=== PATIENT | male | born 1995 | race Hispanic/Latino ===

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

== ENCOUNTER 2017-01-02 11:03 | Emergency (ER) | payer BC, OTHER ==
[2017-01-02 11:12] VITALS: BP 173/64; PULSE 74; TEMP 97; O2SAT 97
[2017-01-02 11:13] VITALS: BMI 33.2
--- NOTE | 2017-01-02 11:47 | ED PDOC ---
Lower Extremity Pain/Injury Time Seen by Provider: 01/02/17 11:38 Chief Complaint (Nursing): Lower Extremity Problem/Injury Chief Complaint (Provider): knee pain History Per: Patient History/Exam Limitations: no limitations Additional Complaint(s): Pt. with left knee pain since Wed. after twisting knee on a wet floor. Did not hurt ankle, hip, head, neck. Has not taken any pain meds. Pain on ambulation. No numbness, tingles, weakness, headaches, dizziness, weakness, calf pain. Past Medical History Reviewed: Nursing Documentation, Vital Signs Vital Signs: Last Vital Signs Temp 97 F L 01/02/17 11:11 Pulse 74 01/02/17 11:11 Resp BP 173/64 H 01/02/17 11:11 Pulse Ox 97 01/02/17 11:11 - Medical History PMH: No Chronic Diseases - Surgical History Surgical History: No Surg Hx - Family History Family History: States: Unknown Family Hx - Social History Current smoker - smoking cessation education provided: No Alcohol: None Drugs: Denies - Home Medications Home Medications: Ambulatory Orders Medication Instructions Recorded Ibuprofen [Motrin] 600 mg PO TID 7 Days tab 01/02/17 - Allergies Allergies/Adverse Reactions: Allergies Allergy/AdvReac Type Severity Reaction Status Date / Time No Known Allergies Allergy Verified 12/05/16 18:26 Review of Systems Constitutional: Negative for: Weakness Cardiovascular: Negative for: Chest Pain Respiratory: Negative for: Shortness of Breath Musculoskeletal: Positive for: Leg Pain. Negative for: Shoulder Pain, Arm Pain , Hand Pain Skin: Negative for: Rash Neurological: Negative for: Weakness, Numbness Physical Exam - Reviewed Nursing Documentation Reviewed: Yes Vital Signs Reviewed: Yes - Physical Exam Appears: Positive for: Non-toxic, No Acute Distress Head Exam: Positive for: ATRAUMATIC, NORMAL INSPECTION, NORMOCEPHALIC Neck: Positive for: Normal, Painless ROM, Supple Cardiovascular/Chest: Positive for: Regular Rate, Rhythm Respiratory: Positive for: CNT, Normal Breath Sounds Back: Positive for: Normal Inspection. Negative for: L CVA Tenderness, R CVA Tenderness Extremity: Positive for: Swelling (Tender L medial knee; pain on valgus movement of left knee; popliteal pulse 2+) Neurologic/Psych: Positive for: Alert, Oriented - ECG O2 Sat by Pulse Oximetry: 97 Pulse Ox Interpretation: Normal - Radiology X-Ray: Interpreted by Me, Viewed By Me X-Ray Interpretation: No Acute Disease - Progress ED Course And Treament: 1226: Stable. AAOx3. Pain controlled. Will put in knee immobilizer and crutches with no weight bearing. Fu ortho for ligament injury. Procedures - Splinting Location: left knee Pre-Made Type: knee immobilizer Pre-Proc Neuro Vasc Exam: normal Post-Proc Neuro Vasc Exam: normal Disposition - Clinical Impression Clinical Impression: Knee injury, HTN (hypertension) - Patient ED Disposition Is Patient to be Admitted: No Counseled Patient/Family Regarding: Studies Performed, Diagnosis, Need For Followup, Rx Given - Disposition Referrals: Bryn Partida MD [Staff Provider] - 01/03/17 Disposition: Routine/Home Disposition Time: 12:28 Condition: STABLE Additional Instructions: See the primary care doctor for your high blood pressure as seen in the ER. See the orthopedic doctor for your knee pain. Return if not better in 3 days. Prescriptions: Ibuprofen [Motrin] 600 mg PO TID 7 Days tab Instructions: Knee Pain (ED), Hypertension (ED) Forms: [email or web address] ([place]ian)
--- NOTE | 2017-01-02 15:46 | RAD ---
HISTORY: pain COMPARISON: No prior FINDINGS: BONES: Normal. No fracture. JOINTS: Normal. No osteoarthritis. SOFT TISSUE: Normal. OTHER FINDINGS: None . IMPRESSION: Normal Bone Xray.
== END 2017-01-02 13:22 | disposition home or self-care (01) ==
LOC: H.ER 11:03
DX: S89.92XA Unspecified injury of left lower leg, initial encounter (principal); W19.XXXA Unspecified fall, initial encounter; Y92.89 Other specified places as the place of occurrence of the external cause; I10 Essential (primary) hypertension
CPT/HCPCS: 73564; 99284; L1830